=== PATIENT | male | born 1985 | race Caucasian/White ===

== ENCOUNTER 2024-10-31 01:09 | Emergency (ER) | payer SELFPAY ==
[~2024-10-31] VITALS: Ht 177.8 cm; Wt 125.7 kg
[2024-10-31 01:18] VITALS: TEMP 36.9; O2SAT 98
[2024-10-31] MEDS ORDERED: CYCL5TAB3 MT (02:48)
[2024-10-31] MEDS ORDERED: LIDO700A15 TP (02:48)
[2024-10-31] MEDS ORDERED: NAPR-1176 MT (02:48)
[2024-10-31] MEDS: LIDOCAINE 5% PATCH TOP SCH (02:52)
[2024-10-31] MEDS: KETOROLAC 15MG/ML VIAL IM ONE (02:53)
[2024-10-31 03:01] VITALS: BP 138/81; PULSE 81; RESP 18; O2SAT 96
== END 2024-10-31 03:03 | disposition home or self-care (01) ==
LOC: ER 01:09
DX: M54.50 Low back pain, unspecified (principal); Z79.899 Other long term (current) drug therapy; Z79.1 Long term (current) use of non-steroidal anti-inflammatories (NSAID); W22.09XA Striking against other stationary object, initial encounter; Y93.89 Activity, other specified; Y92.89 Other specified places as the place of occurrence of the external cause; Y99.8 Other external cause status
CPT/HCPCS: 99285; 72131; 96372; J1885